=== PATIENT | male | born 1985 | race Caucasian/White ===

== ENCOUNTER 2024-03-25 13:00 | Outpatient (RCR) | payer OTHER, SELFPAY | END 2024-03-25 17:07 | disposition home or self-care (01) | LOC: HO.PT 13:00 | PROVIDERS: PCP Nurse Practitioner Family; Visit Provider Orthopaedic Surgery | DX: M75.41 Impingement syndrome of right shoulder (principal); M75.21 Bicipital tendinitis, right shoulder; M75.42 Impingement syndrome of left shoulder; M75.22 Bicipital tendinitis, left shoulder | CPT/HCPCS: 97110; 97112; 97140; 97162 ==

== ENCOUNTER 2024-10-13 08:35 | Outpatient (AMB) | payer OTHER, SELFPAY ==
--- NOTE | 2024-10-13 07:46 | MHC.OFFVIS ---
Intake Visit Reasons: referral Allergies vancomycin [VANCOMYCIN] Allergy (Unknown, Unverified 08/10/20 17:21) RED MAN SYNDROME HPI HPI referral: Details: Patient reports very loud snoring. He is requesting a sleep study, I will place an order in for a home sleep study. He denies any sleep apnea events, at least according to his . He denies any chest pain, shortness of breath, headaches, dizziness. Physical Exam Psych Appearance: well kempt Mental Status: mental status grossly normal Speech and movement: Normal speech and movement present Affect: normal affect Attitude: cooperative Thought process: Normal thought process present Thought content: Normal thought content present Insight: Good insight present (Psych) Judgement: Good judgement present (Psych) Telehealth Telehealth Telehealth Platform: [employer] Location of provider rendering services: practice address Location of patient: address on file Patient Identification confirmed using: Name, : Yes Telehealth method: video Patient verbally consented to treatment: Yes Patient verbally consented to billing insurance company: Yes Patient informed of any privacy concerns related to visit: Yes Minutes spent on Phone/Video with Pt.: 8 Assessment & Plan Assessment & Plan (1) Loud snoring: Code(s): R06.83 - Snoring Category: Medical Plan: Home sleep study ordered, requested the patient get his labs drawn fasting. We will see him in the future for physical Orders: Orders Complete Blood Count Auto Diff Today R06.83 - Snoring Lipid Panel Today R06.83 - Snoring RT home sleep study Today R06.83 - Snoring Comprehensive [place]. Panel Fast Today R06.83 - Snoring TSH reflex Free T4 Today R06.83 - Snoring UA CC w/rflx Micro + Cult Today R06.83 - Snoring Medications: Refilled meloxicam 15 mg PO DAILY PRN 90 tabs 1RF pain 90 days Coding Level of Care Code Tele Est Pt Level 3 (01335) Diagnoses Loud snoring R06.83
== END 2024-10-13 10:40 | disposition home or self-care (01) ==
LOC: HO.HMCC 08:35
PROVIDERS: PCP Nurse Practitioner Family; Visit Provider Nurse Practitioner Family
DX: R06.83 Snoring (principal)

== ENCOUNTER 2024-10-27 07:39 | Outpatient (REF) | payer OTHER, SELFPAY ==
[2024-10-27 11:17] LABS: MANUAL DIFF FLAG NO
[2024-10-27 11:17] LABS: Appearance Urine Turbid; Color Urine Yellow; Glucose Urine UA Negative (Negative); Leukocyte Esterase Urine Negative (Negative); Nitrite Urine Negative (Negative); Specific Gravity - Urine 1.025 (1.005-1.025); Urine Blood Negative (Negative); Urine Ketones Negative (Negative); Urine Protein Trace mg/dL (Neg-Trace)
[2024-10-27 11:25] LABS: Basophils Percent Auto 0.5 % (0-2); Eosinophils Absolute Auto 0.1 X10*3/uL (0.0-0.4); Eosinophils Percent Auto 0.8 % (0-4); Hematocrit 50.5 % (42.0-52.0); Hemoglobin 17.5 g/dl (14.0-18.0); Imm Gran Abs Auto 0.02 X10*3/uL (0.00-0.03); Imm Gran Pct Auto 0.3 % (0.0-0.4); Lymphocytes Absolute Auto 1.6 X10*3/uL (1.2-4.9); Lymphocytes Percent Auto 23.5 % (20-40); Mean Corpuscular HGB Conc 34.7 g/dl (31.0-36.0); Mean Corpuscular Hemoglobin 30.5 pg (27.0-33.0); Mean Platelet Volume 10.4 fL (9.4-12.4); Monocytes Absolute Auto 0.5 X10*3/uL (0.1-1.2); Neutrophils Absolute Auto 4.5 x10*3/uL (2.0-8.3); Neutrophils Percent Auto 67.9 % (45-73); Platelet Count 204 X10*3/uL (160-400); Red Blood Count 5.74 X10*6/uL (4.60-5.80); Red Cell Distribution Width 11.5 % (11.0-16.0); White Blood Count 6.6 X10*3/uL (4.8-10.8)
[2024-10-27 11:56] LABS: Alanine Aminotransferase 42 U/L (0-40); Albumin Level 4.6 g/dL (3.5-5.0); Alkaline Phosphatase 61 U/L (39-117); Anion Gap 11 (12-20); Aspartate Amino Transferase 28 U/L (5-37); Bilirubin Total 0.5 mg/dL (0.0-1.0); Blood Urea Nitrogen 23 mg/dL (9-16); Calcium 10.2 mg/dL (8.4-10.2); Carbon Dioxide 30 mmol/L (22-29); Chloride 104 mmol/L (96-108); Cholesterol 263 mg/dL (<200); Estimated Glomerular Filt Rate > 60; Glucose Fasting 96 mg/dL (60-99); HDL Cholesterol 34 mg/dL (>40); LDL Cholesterol Calculated 192 mg/dL (<100); Potassium 4.4 mmol/L (3.3-5.1); Sodium 141 mmol/L (135-145); Total Protein 7.5 g/dL (6.5-8.0); Triglycerides 186 mg/dL (<150)
[2024-10-27 11:58] LABS: TSH reflex Free T4 1.43 uIU/mL (0.32-4.0)
--- OUTSIDE RECORDS SUMMARY | 2024-11-02 16:18 | XMS_ITS ---
Author Name [facility] Organization Unknown History of Medication Use Medication Directions Dispensed Refills Start Date End Date Stat us FLUoxetine (PROzac) 20 MG capsule 10/08/2024 11/23/9999 active buPROPion (WELLBUTRIN XL) 150 MG 24 hr tablet 10/08/2024 11/23/9999 activ e OMEprazole (PriLOSEC) 20 MG capsule 10/08/2024 11/23/9999 active meloxicam (MOBIC) 15 MG tablet 10/08/2024 11/23/9999 active Problems Problem Status Onset Date Problem Type Date of Resoluti on Source Depression active 2024-10-01 ProblemAct [facility] Heartburn active 2024-10-01 ProblemAct [facility] HTN (hypertension) active 2024-10-01 ProblemAct [facility] Lesion of tongue active EncounterDiagnosisAct HHCCT
== END 2024-10-27 07:40 | disposition home or self-care (01) ==
LOC: HO.WFDLDS 07:39
PROVIDERS: Visit Provider Nurse Practitioner Family
DX: R06.83 Snoring (principal)
CPT/HCPCS: 36415; 80053; 80061; 81003; 84443; 85025

== ENCOUNTER → 2024-11-25 08:08 | Outpatient (REF) | payer OTHER, SELFPAY | LOC: HO.SL 08:08 | PROVIDERS: PCP Nurse Practitioner Family; Visit Provider Nurse Practitioner Family | DX: G47.33 Obstructive sleep apnea (adult) (pediatric) (principal); R06.83 Snoring | CPT/HCPCS: 95806 ==

== ENCOUNTER → 2024-11-25 08:26 | Outpatient (BNV) | payer OTHER, SELFPAY | PROVIDERS: PCP Nurse Practitioner Family; Visit Provider Internal Medicine | DX: G47.33 Obstructive sleep apnea (adult) (pediatric) (principal) | CPT/HCPCS: 95806 ==

== ENCOUNTER 2024-12-17 08:08 | Outpatient (REF) | payer OTHER, SELFPAY ==
--- NOTE | ~2024-12-17 | US_ITS ---
CLINICAL HISTORY: R74.8 - Abnormal levels of other serum enzymes US abdomen complete Comparison: None Findings: The visualized pancreas is normal. The aorta and inferior vena cava are normal caliber. The appearance of the liver suggests fatty infiltration without focal lesion. There is no intrahepatic bile duct dilatation. The common duct is 3.0 mm in diameter. The gallbladder is normal. There is no sonographic Hernandez sign. The main portal vein is antegrade. The right kidney is 12.7 cm in length. The left kidney is 13.4 cm in length. The spleen is normal. No ascites. IMPRESSION: 1. Hepatic steatosis. This document has been electronically signed by: Bhaskar Schilling MD on 12/18/2024 09:30:55
== END 2024-12-17 08:09 | disposition home or self-care (01) ==
LOC: HO.US 08:08
PROVIDERS: PCP Nurse Practitioner Family; Visit Provider Nurse Practitioner Family
DX: R74.8 Abnormal levels of other serum enzymes (principal)
CPT/HCPCS: 76700

== ENCOUNTER → 2024-12-17 08:08 | Outpatient (BNV) | payer OTHER, SELFPAY | PROVIDERS: PCP Nurse Practitioner Family; Visit Provider Specialist | DX: K76.0 Fatty (change of) liver, not elsewhere classified (principal) | CPT/HCPCS: 76700 ==

== ENCOUNTER 2025-01-12 15:42 | Outpatient (AMB) | payer OTHER, SELFPAY ==
--- OUTSIDE RECORDS SUMMARY | 2025-01-12 15:45 | XMS_ITS | Encounter Summary ---
Author Organization [facility] Address [address] [place] [address] Care Team Providers Care Coding Educator Name Role Phone Abdirizak Bryan MD Primary Care Provider [phone] Reason for Visit * Reason Comments Procedure Tongue bx Encounter Details Date Type Department Care Team (Latest Contact Info) Description 10/06/2024 1:00 PM EST Procedure visit [facility] [address] [address] Bob Jin MD [address] [place] [address] Tongue lesion (Primary Dx) Social History Tobacco Use Types Packs/Day Years Used Date Smoking Tobacco: Never Passive Smoke Exposure: Past Smokeless Tobacco: Never Alcohol Use Standard Drinks/Week Comments Yes 0 (1 standard drink = 0.6 oz pur e alcohol) monthly 2-3 Sex and Gender Information Value Date Recorded Sex Assigned at Not on file Gender Identity Not on file Sexual Orientation Not on file documented as of this encounter Last Filed Vital Signs Vital Sign Reading Time Taken Comments Blood Pressure - - Pulse - - Temperature - - Respiratory Rate - - Oxygen Saturation - - Inhaled Oxygen Concentration - - Weight 97.5 kg (215 lb) 10/06/2024 1:04 PM EST Height 177.8 cm (5' 10 ) 10/06/2024 1:04 PM EST Body Mass Index 30.85 10/06/2024 1:04 PM EST documented in this encounter Progress Notes * Bob Jin MD - 10/06/2024 1:00 PM EST Images from the original note were not included. [address] [facility] [id number] Loc: [phone] Encounter Date: 10/06/2024 Chief Complaint Patient presents with Procedure Tongue bx 1. Tongue lesion PROCEDURE: Excision of tongue lesion Pre-op Diagnosis: tongue lesion Post-op Diagnosis: same EBL: less than 5 ml Specimen: right lateral tongue Anesthesia: topical cetacaine and injected 1% lidocaine Description of procedure: The patient was identified in the procedure room. Surgical consent reviewed and all questions answered. He was placed in a semi-reclined position. Cetacaine spray was used as a topical anesthetic. 1%lidocaine with 1:100,000 epinephrine solution for a total of 1 mL was injected at the lesion site. Following adequate time for the anesthetic to take effect, sharp dissection was performed and the lesion was excised in its entirety. Hemostasis was achieved using pressure for 2 minutes followed by silver nitrate. The patient tolerated the procedure well and after a period observation was discharged home with care instructions and will follow up in one week PAST MEDICAL HISTORY Past Medical History: Diagnosis Date Depression 10/01/2024 Heartburn 10/01/2024 HTN (hypertension) 10/01/2024 Past Surgical History: Procedure Laterality Date ORTHOPEDIC SURGERY knee, thigh SHOULDER ARTHROCENTESIS History reviewed. No pertinent family history. Social History Tobacco Use Smoking status: Never Passive exposure: Past Smokeless tobacco: Never Substance Use Topics Alcohol use: Yes Comment: monthly 2-3 Drug use: Never MEDICATIONS Current Outpatient Medications: buPROPion (WELLBUTRIN XL) 150 MG 24 hr tablet, , Disp: , Rfl: FLUoxetine (PROzac) 20 MG capsule, , Disp: , Rfl: meloxicam (MOBIC) 15 MG tablet, , Disp: , Rfl: OMEprazole (PriLOSEC) 20 MG capsule, , Disp: , Rfl: ALLERGIES Allergies Allergen Reactions Aspirin Unknown/Patient and Family Unable to Define Vancomycin Unknown/Patient and Family Unable to Define VISIT ORDERS 1. Tongue lesion Bob Jin MD documented in this encounter Plan of Treatment Not on file documented as of this encounter Procedures Procedure Name Priority Date/Time Associated Diagnosis Comments SURGICAL PATHOLOGY Routine 10/06/2024 1: 57 PM EST Tongue lesion documented in this encounter Results * Tissue Pathology (10/06/2024 1:57 PM EST) Clinical Information [facility] Comment: ICD-10: K14.8 Growth, lesion Pathologist [facility] Comment: Trudy Mayen M.D., (electronic signature) [facility] [phone] Source [facility] Comment:Right lateral tongue , biopsy: Gross Desription [facility] Comment: The container is labeled with patient's name and source R lateral tongue . ??Specimen is received in 10% neutral buffered formalin and consists of a pale messina-galindo piece of soft tissue measuring 0.6 x 0.3 x 0.2 cm. ??The surgical resection is inked black. ??The specimen is left intact and submitted entirely in cassette A1. ??Gross exam(s) performed at: [employer] ??[address] [place] [phone] ??Principal Architect: ANTONIO HAWKINS MD Diagnosis [facility] Comment: - Hyperplastic squamous mucosa with parakeratosis and mild cytologic atypia; negative for high-grade dysplasia/malignancy. Tissue 10/06/2024 1:57 PM EST 10/07/2024 5:03 AM EST Bob Jin MD PATHOLOGY/CYTOLOGY O RDERABLES Performing Organization Address City/State/[facility] Co de Phone Number [facility] [place] [address] [place] [address] documented in this encounter Visit Diagnoses Diagnosis Tongue lesion- Primary Unspecified condition of the tongue documented in this encounter Care Teams Coding Educator Relationship Specialty Start Date End Date Abdirizak Bryan MD [address] [place] [address] PCP - General Family Medicine 09/20/24 documented as of this encounter
--- OUTSIDE RECORDS SUMMARY | 2025-01-12 15:45 | XMS_ITS | Clinical Summary ---
Author Organization [facility] Address [address] [place] [address] Care Team Providers Care Hotel Clerk Name Role Phone Abdirizak Bryan MD Primary Care Provider [phone] Allergies Active Allergy Reactions Criticality Noted Date Comments Aspirin Unknown/Patient and Family Unable to Define Medium 10/01/2024 Vancomycin Unknown/Patient and Family Unable to Define Medium 10/01/2024 Medications Medication Sig Dispensed Refills Start Date End Date Status OMEprazole (PriLOSEC) 20 MG capsule 09/20/2024 Active meloxicam (MOBIC) 15 MG tablet 09/13/2024 Active FLUoxetine (PROzac) 20 MG capsule 09/27/2024 Active buPROPion (WELLBUTRIN XL) 150 MG 24 hr tablet 08/09/2024 Active Active Problems Problem Noted Date Diagnosed Date Depression 10/01/2024 Heartburn 10/01/2024 HTN (hypertension) 10/01/2024 Encounters Date Type Department Care Team Description 10/20/2024 8:00 AM EST Office Visit [facility] [address], [place] [address] Bob Jin MD Lesion of tongue (Primary Dx) from Last 3 Months Social History Tobacco Use Types Packs/Day Years Used Date Smoking Tobacco: Never Passive Smoke Exposure: Past Smokeless Tobacco: Never Tobacco Cessation:Counseling Given: Not Answered Alcohol Use Standard Drinks/Week Comments Yes 0 (1 standard drink = 0.6 oz pur e alcohol) monthly 2-3 Sex and Gender Information Value Date Recorded Sex Assigned at Not on file Gender Identity Not on file Sexual Orientation Not on file Last Filed Vital Signs Vital Sign Reading Time Taken Comments Blood Pressure - - Pulse - - Temperature - - Respiratory Rate - - Oxygen Saturation - - Inhaled Oxygen Concentration - - Weight 97.5 kg (215 lb) 10/20/2024 7:57 AM EST Height 177.8 cm (5' 10 ) 10/20/2024 7:57 AM EST Body Mass Index 30.85 10/20/2024 7:57 AM EST Plan of Treatment Health Maintenance Due Date Last Done Comments Hepatitis C Virus Screening 1983 HIV Screening 1996 DTaP/Tdap/Td Vaccines (1 - Tdap) 2002 Hepatitis B Vaccines (1 of 3 - 19+ 3-dose series) 2002 Influenza Vaccine 06/24/2024 COVID-19 Vaccine (2023-2 5 season) 2024 HPV Vaccines Aged Out No longer eligi ble based on patient's age to complete this topic Pneumococcal Vaccine: Pediat kristy (0-5 Years) and At-Risk Patients (6 to 49 Years) Aged Out No longer eligible b ased on patient's age to complete this topic Care Teams Hotel Clerk Relationship Specialty Start Date End Date Abdirizak Bryan MD [address] [place] [address] PCP - General Family Medicine 09/20/24
--- NOTE | 2025-01-12 15:54 | A.OFFPC_ITS ---
Vital Signs 01/12/25 15:57 Height 5 ft 10 in Weight 215 lb BMI 30.8 BP 130/70 Blood Pressure Location Lt brachial Position Sitting Pulse 73 Pulse Source Pulse Oximeter Temp 97.9 F Temp Source Oral Pulse Oximetry (%) 98 Intake Visit Reasons: Annual PE Intake Note: pt is here for annual exam Sanitation Worker Required: No Accompanied by: Self / Same As Patient Allergies vancomycin [VANCOMYCIN] Allergy (Unknown, Verified 01/12/25 16:41) RED MAN SYNDROME Medication List - Last Reconciled 01/12/25 by SHELLY CerdaP- bupropion HCl XL 150 mg PO QAM 90 days CPAP (CPAP Machine/Device) CPAP and supplies-Auto pap mode, pressure 6-20cm fluoxetine 20 mg PO DAILY meloxicam 15 mg PO DAILY PRN 90 days omeprazole 20 mg PO DAILY 90 days Tobacco use date assessed: 01/12/25 Dental Screening Dental Screen Date: 01/12/25 Did you have a dental visit in the last 12 months?: Yes Did you have a dental problem in the last 6 months where you did not have access to dental care?: No Was dental information given to patient?: Patient has dentist HPI Annual PE HPI Details History of Present Illness The patient is a 39-year-old male presenting for a physical examination. He has a history of obstructive sleep apnea for which he uses a CPAP machine. His sleep apnea has been previously undiagnosed for a significant period. He denies experiencing any shortness of breath, chest pain, abdominal pain, blood in stool, constipation, or diarrhea. He reports no issues with anxiety or depression and denies any suicidal or homicidal ideation. Due to his sleep apnea history ,i will order a echocardiogram. Additionally, he has a hearing impairment necessitating a hearing test. Health Maintenance - Echocardiogram recommended due to hist ory of obstructive sleep apnea - Hearing test scheduled due to reported hearing impairment Social History Review of Systems - Respiratory: Denies shortness of breat h. - Cardiovascular: Denies chest pain. - Gastrointestinal: Denies abdominal donovan n, blood in stool, constipation, or diarrhea. - Psychological: Denies anxiety, depress ion, suicidal or homicidal ideation. - denies any urinary symptoms Physical Exam General: Cooperative, healthy appearing, comfortable, no acute distress and well developed Orientation: Patient oriented x3 Limitations: No limitations Head: Normal to inspection Ears: Hearing impaired, will be sent for a hearing test Nose: Normal external nose present Face and sinus: Normal facial exam Eyes: Appearance normal, both eyes and all related structures Neck: Normal visual inspection and Yes full ROM Respiratory: Normal respiratory effort and able to speak in complete sentences. Clear to auscultation bilaterally Cardiovascular: Regular rate and rhythm. Normal S1 and S2 GI: Normal to inspection. Soft to palpation and nontender Skin: No rashes or lesions noted Neuro: Patient oriented x3 Extremities: Normal to inspection Results Plan - An echocardiogram will be performed to assess any potential cardiac complications from undiagnosed obstructive sleep apnea. - The patient will be referred for a hea ring test due to hearing impairment. Discussion Notes I discussed the management of his obstructive sleep apnea and the importance of continuing CPAP therapy. We also talked about the recommended echocardiogram to check for any cardiac implications due to the long history of untreated sleep apnea. I explained the need for a hearing test to further evaluate his hearing impairment. The patient was agreeable to the plan and understands the importance of these assessments in the context of his health maintenance. Patient Instructions - Continue using your CPAP machine every night as prescribed. - Follow up for the scheduled echocardio gram and hearing test. - Report any new or worsening symptoms, such as breathing difficulties or any new cardiovascular symptoms. [facility] Medical History Fatty liver Depression Surgical History S/P shoulder surgery S/P left knee surgery Family History Mother Colon cancer Father No problems noted. 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 1. Little interest or pleasure in doing things: not at all 2. Feeling down, depressed, or hopeless: several days 3. Trouble falling or staying asleep, or sleeping too much: not at all 4. Feeling tired or having little energy: not at all 5. Poor appetite or overeating: not at all 6. Feeling bad about yourself - or that you are a failure or have let yourself or your family down: not at all 7. Trouble concentrating on things, such as reading the newspaper or watching television: not at all 8. Moving or speaking so slowly that other people could have noticed. Or the opposite - being so fidgety or restless that you have been moving around a lot more than usual: not at all 9. Thoughts that you would be better off or of hurting yourself in some way: not at all Total score: 1 Depression Screening Interpretation: Negative Depression Screening Done: Yes [id number] - PHQ-9 Billing: Yes Source: Developed by Drs. Travis Loco, Larissa Hussein, Jaron Martinez and colleagues, with an educational enio from [employer]. Thrive Questionnaire I am a: Patient What is your living situation today?: I have a steady place to live Within the past 12 months, did the food you bought not last and you didn't have the money to get more?: Never true Within the past 12 months, did you worry whether your food would run out before you got money to buy more?: Never true Do you have trouble paying for medicines?: No Do you have trouble getting transportation to medical appointments?: No Do you have trouble paying your heating and electricity bill?: No Do you have trouble taking care of your child, family member or friend?: No Do you have trouble with day-to-day activities such as bathing, preparing meals, shopping, managing finances, etc.?: No Are you currently unemployed and looking for a job?: No Are you interested in more education?: No Please select the resources that you would like help with: None Currently or been in a relationship where the following occur: No concerns reported THRIVE Score: 0 AUDIT C Alcohol Use Questionnaire (AUDIT-C) 1. How often do you have a drink containing alcohol?: 2-4 times a month 2. How many drinks containing alcohol do you have on a typical day when you are drinking?: 1 or 2 3. How often do you have six or more drinks on one occasion?: Never Total Score: 2 NICKOLAS-7 AMB Questionnaire NICKOLAS-7 Feeling nervous, anxious, or on edge: 0 = Not at all Not being able to stop or control worryin = Not at all Worrying too much about different things: 0 = Not at all Trouble relaxin = Not at all Being so restless that it is hard to sit still: 0 = Not at all Becoming easily annoyed or irritable: 0 = Not at all Feeling afraid as if something awful might happen: 0 = Not at all Total NICKOLAS-7 score (0-4 normal; 5-9 mild; 10-14 moderate; 15-21 severe): 0 Source: Developed by Drs. Travis Loco, Larissa Hussein, Jaron Martinez and colleagues, with an educational enio from [employer]. NICKOLAS-7 Assessment Billing NICKOLAS-7 Assessment Tool: NICKOLAS-7 Assessment 55778 Physical exam (Primary Care) Vital Signs: Last Vital Signs Temp 97.9 F 01/12/25 15:57 Pulse 73 01/12/25 15:57 BP 130/70 01/12/25 15:57 Pulse Ox 98 01/12/25 15:57 BMI result Body Mass Index 30.8 Tobacco/Smoking Status: Tobacco use Status Tobacco use date assessed 01/12/25 01/12/25 16:05 Patient Tobacco Use Status Never used Tobacco 01/12/25 16:05 e-Cigarette/Vaping Use Never Used 01/12/25 16:05 PHQ-9: PHQ-9 Score PHQ-9: Total score 1 01/12/25 15:55 Depression Screening Interpretation: Negative Currently or been in a relationship where the following occur: No concerns reported Coding Level of Care Code Est Pt Prev Care 40-64y(84034) Diagnoses Physical exam Z00.00 Sleep apnea G47.30 Loss of hearing H91.90 Additional Codes PHQ-9 - 03762 - PHQ-9 Billing: Yes ([id number]) NICKOLAS-7 Assessment Billing - NICKOLAS-7 Assessment Tool: NICKOLAS-7 Assessment 49698 ([id number]) Assessment & Plan Assessment & Plan (1) Physical exam: Code(s): Z00.00 - Encounter for general adult medical examination without abnormal findings Category: Medical (2) Sleep apnea: Code(s): G47.30 - Sleep apnea, unspecified Category: Medical (3) Loss of hearing: Code(s): H91.90 - Unspecified hearing loss, unspecified ear Category: Medical Plan . Orders: Orders Comprehensive [place]. Panel Fast Today Z00.00 - Encounter for general adult medical examination without abnormal findings Lipid Panel Today Z00.00 - Encounter for general adult medical examination without abnormal findings Complete Blood Count Auto Diff Today Z00.00 - Encounter for general adult medical examination without abnormal findings TSH reflex Free T4 Today Z00.00 - Encounter for general adult medical examination without abnormal findings UA CC w/rflx Micro + Cult Today Z00.00 - Encounter for general adult medical examination without abnormal findings CA echo transthoracic complete Today G47.30 - Sleep apnea, unspecified Referrals Speech and Hearing Referral H91.90 - Unspecified hearing loss, unspecified ear
[2025-01-12 15:57] VITALS: BP 130/70; PULSE 73; TEMP 36.6; O2SAT 98; BMI 30.8
== END 2025-01-12 17:02 | disposition home or self-care (01) ==
PROVIDERS: PCP Nurse Practitioner Family; Visit Provider Nurse Practitioner Family
DX: Z00.00 Encounter for general adult medical examination without abnormal findings (principal); G47.30 Sleep apnea, unspecified; H91.90 Unspecified hearing loss, unspecified ear

== ENCOUNTER → 2025-01-12 15:42 | Outpatient (BNVA) | payer OTHER, SELFPAY | PROVIDERS: PCP Nurse Practitioner Family; Visit Provider Nurse Practitioner Family | DX: Z00.00 Encounter for general adult medical examination without abnormal findings (principal); G47.33 Obstructive sleep apnea (adult) (pediatric); H91.90 Unspecified hearing loss, unspecified ear | CPT/HCPCS: 96127 ==

== ENCOUNTER 2025-01-19 07:48 | Outpatient (REF) | payer OTHER, SELFPAY ==
--- OUTSIDE RECORDS SUMMARY | 2025-01-19 07:54 | XMS_ITS | Patient Health Record ---
Author Organization [facility] Address [address] [place] [address] Care Team Providers Care Telegraph Lineman Name Role Phone MANAS MUNIZ Primary Care Provider Jose Elias Barnes Unavailable [phone] ALLERGIES Allergen (clinical drug ingredient) Drug/Non Drug Allergy documented on EMR Reaction Allergy Type Onset Date Status vancomycin Vancomycin HCl Unknown Drug Allergy A ctive REASON FOR REFERRAL No Information MEDICATIONS Medication SIG (Take, Route, Fr equency, Duration) Notes Start Date End Date Status Omeprazole 20 MG TAKE 1 CAPSULE BY MO UTH EVERY DAY for 30 Active FLUoxetine HCl 10 MG TAKE 1 CAPSULE BY M OUTH EVERY DAY IN THE MORNING Oral for 90 A ctive SOCIAL HISTORY Tobacco Use: Social History Observation Description Date Details (start date - stop date) Never Smoker NA - NA Sex Assigned At : Social History Observation Description Sex Assigned At Unknown Tobacco Use/Smoking Question Answer Notes Patient is a nonsmoker Alcohol Screen Question Answer Notes Did you have a drink contain ing alcohol in the past year? Yes How often did you have a dri nk containing alcohol in the past year? Monthly or less (1 point) How many drinks did you have on a typical day when you were drinking in the past year? 1 or 2 drinks (0 point) How often did you have 6 or more drinks on one occasion in the past year? Never (0 point) Points 1 Interpretation Negative PROBLEMS Problem Type ICD Code Onset Dates Problem Status W/U Status Risk SNOMED Code Notes Problem Encounter for screening for malignant neoplasm of colon (Z12.11) Active confirmed 676391060 Problem Preprocedural examination (Z01.818) Active confirmed [id number] Problem Family history of colon cancer (Z80.0) Active confirmed 770031963 Problem Dysphagia, unspecified type (R13.10) Active confirmed 52307610 PLAN OF TREATMENT Future Test Test Name Order Date COLONOSCOPY 04/14/2018 Next Appt Details Provider Name:Jose Elias Lucas , 05/06/2025 03:00:00 PM, [address] [place] [address], [address], [place], [address], Insurance Providers Payer Name Payer Address Payer Phone Subscriber Number Group Number Insured Name Patient Relationship to Insured Coverage Start Date Coverage End Date [employer] [place] [address] [address] [place] [address] [id number] JOSE ELIAS MANDEL Self - patient is the insured MEDICAL (GENERAL) HISTORY Medical History History ICD Code Asthma--inhaler prn Denies [place],DM,CV,renal disease Depression Surgical History Surgery Date(Month/Year) RIGHT SHOULDER 1997 LEFT KNEE 1996 LEFT THIGH - FOREIGN BODY REMOVED 2011 Vasectomy
--- OUTSIDE RECORDS SUMMARY | 2025-01-19 07:54 | XMS_ITS | Clinical Summary ---
Author Organization [facility] Address [address] [place] [address] Care Team Providers Care Rn Women Services Name Role Phone Abdirizak Bryan MD Primary Care Provider Allergies Active Allergy Reactions Criticality Noted Date [...] Description 10/20/2024 8:00 AM EST Office Visit [facility] [address], [place] [address] Bob Jin MD Lesion of [...] age to complete this topic Care Teams Rn Women Services Relationship Specialty Start Date End Date Abdirizak Bryan MD [address] [place] [address] PCP - General Family Medicine 09/20/24
== END 2025-01-19 07:49 | disposition home or self-care (01) ==
LOC: HO.SH 07:48
PROVIDERS: Visit Provider Nurse Practitioner Family
DX: Z01.118 Encounter for examination of ears and hearing with other abnormal findings (principal); H90.3 Sensorineural hearing loss, bilateral
CPT/HCPCS: 92557

== ENCOUNTER → 2025-01-26 08:01 | Outpatient (REF) | payer OTHER, SELFPAY ==
--- NOTE | 2025-01-26 08:04 | CA_ITS ---
Transthoracic Echocardiogram Patient (Last, First, Middle): Travis Mendez M Gender: Male Date of : 1985 Age: 39 Procedure Date: 01/26/2025 Procedure Type: Transthoracic Echocardiogram Location: OP Height: 177.8 cm Weight: 97.52 kg BSA: 2.15 m2 Heart Rate: bpm BP: 128 / 80 mmHg Elementary Librarian: TO Referring MD: Abdirizak Bryan [facility] Raw Silk Grader: Brando Herndon MD Symptoms: G47.30 - Sleep apnea, unspecified Study Quality: Adequate w contrast ECG Rhythm: Sinus Conclusions: - Essentially normal study Findings Procedure Information Contrast agent, definity, is being given per protocol without apparent complications. Left Ventricle Normal left ventricular size, thickness, and systolic function. The visually estimated ejection fraction is between 55-60%. Spectral Doppler is indicative of a normal filling pattern. Right Ventricle Normal right ventricular cavity size and systolic function. Atria Both atria are normal in size. There is no evidence of interatrial shunt. Aortic Valve Normal aortic valve structure and function. There is no aortic valve stenosis. There is no aortic valve regurgitation. Mitral Valve Normal mitral valve structure and function. There is trace mitral valve regurgitation. There is no mitral valve stenosis. Pulmonic Valve The pulmonic valve is likely normal. Tricuspid Valve Normal tricuspid valve structure. Tricuspid regurgitation envelope is inadequate for calculation of right ventricular systolic pressure. Normal right atrial pressure. Great Vessels All visible segments of the aorta are normal in size. Venous The inferior vena cava is normal in size and collapses greater than 50% with inspiration. Pericardium/Pleural There is no evidence of pericardial effusion. Prior Study Comparison No prior study available for comparison. Measurements 2D Linear Measurements IVSd: 1.04 0.6-0.9/0.6-1.0 cm LVIDd: 4.82 3.9-5.3/4.2-5.9 cm LVIDd Index: 2.24 2.4-3.2/2.2-3.1 cm/m2 LVIDs: 3.41 2.0-3.6 cm LVPWd: 0.72 0.7-1.1 cm LA Diam: 3.20 2.7-3.8/3.0-4.0 cm LAIDs Index: 1.49 1.5-2.3 cm/m2 LV Mass: 179.69 67-162/88-224 g LV Mass Index: 83.58 43-95/49-115 g/m2 LVOT Diam: 2.20 3.0+(-)1.3 cm Mitral Valve MV Pk E: 0.71 MV PK A: 0.44 MV Decel Time: 192.00 E/A: 1.60 E'Lateral: 12.00 E'Medial: 9.14 E/E' Med: 7.70 E/E' Lat: 5.90 PHT: 56.00 MVA PHT: 3.93 Decel Pecos: 3.67 Aortic Valve AoV Pk Edwin: 1.05 AoV Mn Edwin: 0.78 AoV VTI: 0.23 AoV Pk Grad: 4.00 Aov Mn Grad: 3.00 SUMMER Cont.VTI: 3.17 LVOT LVOT Pk Edwin: 1.04 LVOT Mn Edwin: 0.68 LVOT VTI: 0.19 LVOT Pk Grad: 4.00 LVOT Mn Grad: 2.00 LVOT Diam: 2.20 LVOT Area: 3.80 Diastolic Function MV Pk E: 0.71 MV Pk A: 0.44 E/A: 1.60 E'Medial: 9.14 E/E' Med: 7.70 E' Laterial: 12.00 E/E' Lat: 5.90 Right Ventricle TAPSE (mm): 21.70 TVS' Edwin: 12.90 Tricuspid Valve RA Press: 3.00 Great Vessels Aorta Sinus of Valsalva: 3.33 2.0-3.5 cm Ao Asc: 2.70 2.1-3.4 cm Updated in Other Vendor System with Status of Final Brando Herndon MD electronically signed on 01/27/2025 3:59:35 PM with status of Final
--- OUTSIDE RECORDS SUMMARY | 2025-01-26 08:10 | XMS_ITS | Clinical Summary ---
Author Organization [facility] Address [address] [place] [address] Care Team Providers Care Marble Supervisor Name Role Phone Abdirizak Bryan MD Primary [...] Depression 10/01/2024 Heartburn 10/01/2024 HTN (hypertension) 10/01/2024 Social History Tobacco Use Types Packs/Day Years [...] series) 2002 Influenza Vaccine 06/24/2024 COVID-19 Vaccine (1 - 2023-2 5 season) 2024 HPV Vaccines Aged Out No longer eligi ble based on patient's age to complete this topic Pneumococcal Vaccine: Pediat kristy (0-5 Years) and At-Risk Patients (6 to 49 Years) Aged Out No longer eligible b ased on patient's age to complete this topic Care Teams Marble Supervisor Relationship Specialty Start Date End Date Abdirizak Bryan MD [address] [facility] [place] [address] PCP - General Family Medicine 09/20/24
--- OUTSIDE RECORDS SUMMARY | 2025-01-26 08:11 | XMS_ITS | Patient Health Record ---
Author Organization [facility] Address [address] [place] [address] Care Team Providers Care Forensic Investigator Name Role Phone MANAS MUNIZ Primary Care Provider Jose Elias Barnes Unavailable [phone] Allergies Allergen (clinical drug ingredient) Drug/Non Drug Allergy documented on EMR Reaction Allergy Type Onset Date Status vancomycin Vancomycin HCl Unknown Drug Allergy A ctive Reason For Referral No Information Medications Medication SIG (Take, Route, Fr equency, Duration) Notes Start Date End Date Status Omeprazole 20 MG TAKE 1 CAPSULE BY MO UTH EVERY DAY for 30 Active FLUoxetine HCl 10 MG TAKE 1 CAPSULE BY M OUTH EVERY DAY IN THE MORNING Oral for 90 A ctive Social History Tobacco Use: Social History Observation Description Date Details (start date - stop date) Never Smoker NA - NA Tobacco Use/Smoking Question Answer Notes Patient is [...] Never (0 point) Points 1 Interpretation Negative Section Notes: Nonsmoker, occ. beer Problems Problem Type SNOMED Code ICD Code Onset Dates Problem Status W/U Status Risk Notes Problem 336242147 Encounter for screening for malignant neoplasm of colon (Z12.11) Active confirmed Problem 429500833541521 Preprocedural examination (Z01.818) Active confirmed Problem 253180164 Family history o f colon cancer (Z80.0) Active confirmed Problem 79168366 Dysphagia, unspecified type (R13.10) Active confirmed Plan Of Treatment Future Test Test Name Order Date COLONOSCOPY 04/14/2018 Next Appt Details Provider Name:Jose Elias Lucas , 05/06/2025 03:00:00 PM, [address] [place] [address], [address], [place], [address], Insurance Providers Payer Name Payer Address Payer Phone Subscriber Number Group Number Insured Name Patient Relationship to Insured Coverage Start Date Coverage End Date [employer] [place] [address] [address] [place] [address] [id number] JOSE ELIAS MANDEL Self - patient is the insured Medical (General) History Medical History History ICD Code Asthma--inhaler prn Denies AL,DM,CV,renal disease Depression Surgical History Surgery Date(Month/Year) RIGHT SHOULDER 1997 LEFT KNEE 1996 LEFT THIGH - FOREIGN BODY REMOVED 2011 Vasectomy
== END ==
LOC: HO.CARD 08:01
PROVIDERS: PCP Nurse Practitioner Family; Visit Provider Nurse Practitioner Family
DX: G47.30 Sleep apnea, unspecified (principal)
CPT/HCPCS: 93306; Q9957

== ENCOUNTER → 2025-01-26 08:04 | Outpatient (BNV) | payer OTHER, SELFPAY | PROVIDERS: PCP Nurse Practitioner Family; Visit Provider Internal Medicine Cardiovascular Disease | DX: G47.30 Sleep apnea, unspecified (principal) | CPT/HCPCS: 93306 ==

== ENCOUNTER 2025-02-17 07:13 | Outpatient (AMB) | payer OTHER, SELFPAY ==
--- NOTE | 2025-02-17 07:44 | MHC.PC.OV ---
Intake Visit Reasons: 60 day cpap compliance Allergies vancomycin [VANCOMYCIN] Allergy (Unknown, Verified 02/17/25 07:44) RED MAN SYNDROME Medication List - Last Reconciled 02/17/25 by ROSAURA Cerda bupropion HCl XL 150 mg PO QAM 90 days CPAP (CPAP Machine/Device) CPAP and supplies-Auto pap mode, pressure 6-20cm fluoxetine 20 mg PO DAILY meloxicam 15 mg PO DAILY PRN 90 days omeprazole 20 mg PO DAILY 90 days Tobacco use date assessed: 01/12/25 Dental Screening Dental Screen Date: 01/12/25 HPI 60 day cpap compliance HPI Details History of Present Illness The patient is a 39-year-old male presenting with a follow-up for compliance with CPAP therapy. He has consistently used the device for about one month and has experienced significant symptom improvement. He reports diminished fatigue and a complete cessation of snoring. His energy levels have improved markedly, and he is very satisfied with the benefits he has experienced. There have been no adverse events reported during this time. Review of Systems denies any sob, cp, fevers, chills PE A+Ox3 no acute distrss noted Plan The patient will continue with current CPAP therapy due to the observed benefits, including reduced fatigue and cessation of snoring. Continued monitoring and adherence to therapy were recommended, as no therapy modifications are indicated at this time. Discussion Notes During our discussion, we reviewed the patient's progress with CPAP therapy. The patient reported satisfaction with the treatment outcomes, experiencing less fatigue and no snoring. We discussed the importance of continuing the therapy to maintain these benefits. I emphasized monitoring for any potential issues and ensuring adherence to the prescribed treatment plan. Follow-up was advised if any concerns or changes in symptoms arise. Patient Instructions - Continue using CPAP device every night as directed. - Monitor for any changes in symptoms or any issues with device. - Report any new symptoms or issues with CPAP at the next follow-up. [facility] Medical History Fatty liver Depression Surgical History S/P shoulder surgery S/P left knee surgery Family History Mother Colon cancer Father No problems noted. 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 Cognitive needs: No Hearing needs: No Vision needs: No Physical exam (Primary Care) Tobacco/Smoking Status: Tobacco use Status Tobacco use date assessed 01/12/25 01/12/25 16:05 Patient Tobacco Use Status Never used Tobacco 01/12/25 16:05 e-Cigarette/Vaping Use Never Used 01/12/25 16:05 Telehealth Telehealth Telehealth Platform: ECO Location of provider rendering services: practice address Location of patient: address on file Patient Identification confirmed using: Name, : Yes Telehealth method: video Patient verbally consented to treatment: Yes Patient verbally consented to billing insurance company: Yes Patient informed of any privacy concerns related to visit: Yes Minutes spent on Phone/Video with Pt.: 12 Coding Level of Care Code Tele Est Pt Level 3 (78081) Diagnoses Sleep apnea G47.30 Loud snoring R06.83 Assessment & Plan Assessment & Plan (1) Sleep apnea: Code(s): G47.30 - Sleep apnea, unspecified Category: Medical (2) Loud snoring: Code(s): R06.83 - Snoring Category: Medical Plan .
== END 2025-02-17 08:14 | disposition home or self-care (01) ==
LOC: HO.HMCC 07:13
PROVIDERS: PCP Nurse Practitioner Family; Visit Provider Nurse Practitioner Family
DX: G47.30 Sleep apnea, unspecified (principal); R06.83 Snoring

== ENCOUNTER 2025-07-01 11:30 | Day surgery (SDC) | payer OTHER, SELFPAY ==
--- OUTSIDE RECORDS SUMMARY | 2025-06-02 15:05 | XMS_ITS | Clinical Summary ---
Author Organization [facility] Address [address] [place] [address] Care Team Providers Care Puddler Helper Name Role Phone Abdirizak Bryan MD Primary Care Provider [phone] Allergies Active Allergy Reactions Criticality Noted Date Comments Aspirin Unknown/Patient and Family Unable to Define Medium 10/01/2024 Vancomycin Unknown/Patient and Family Unable to Define Medium 10/01/2024 Medications OMEprazole (PriLOSEC) 20 MG capsule 09/20/2024 Active [...] Recorded Sex Assigned at Not on file Legal Sex Male 6:21 PM EST Gender Identity Not on file Sexual Orientation [...] of 3 - 19+ 3-dose series) 2002 COVID-19 Vaccine (1 - 2023-2 5 season) 2024 Influenza Vaccine 06/24/2025 HPV Vaccines Aged Out No longer eligi ble based on patient's age to complete this topic Pneumococcal Vaccine: Pediat kristy (0-5 Years) and At-Risk Patients (6 to 49 Years) Aged Out No longer eligible b ased on patient's age to complete this topic Insurance [facility] Care Teams Puddler Helper Relationship Specialty Start Date End Date Abdirizak Bryan MD [address] [place] [address] PCP - General Family Medicine 09/20/24
--- OUTSIDE RECORDS SUMMARY | 2025-06-02 15:06 | XMS_ITS ---
Author Name [facility] Organization Unknown History of Medication Use Medication Directions Dispensed Refills Start Date End Date Stat us FLUoxetine (PROzac) 20 MG capsule 09/27/2024 active Allergies Allergen Reaction Severity Comment Documented Date Source Statu s VANCOMYCIN UNKNOWN/PATIENT AND FAMILY UNABLE TO DEFINE 10/01/2024 [facility] active ASPIRIN UNKNOWN/PATIENT AND FAMILY UNABLE TO DEFINE [facility] Problems Problem Status Onset Date Problem Type Date of Resoluti on Source Lesion of tongue active EncounterDiagnosisAct [facility] HTN (hypertension) active 2024-10-01 ProblemAct [facility] Heartburn active 2024-10-01 ProblemAct [facility] Depression active 2024-10-01 ProblemAct [facility] Encounters Encounter Type Encounter Reason Primary Diagnosis Location Date Ambulatory Follow-up Follow-up [facility] 10/20/2024 Ambulatory Procedure Procedure [facility] 10/06/2024 Care Team Organization Name Specialty Phone Email Start Date End Da te [facility] 10/08/2024 02/09/2025 [facility] 09/20/2024 [facility] Primary Care 09/20/2024
[2025-06-29 14:40] VITALS: BMI 31.0
--- NOTE | 2025-06-30 08:55 | P.CONAN_ITS ---
Documented by User: Ellie Dhaliwal NP 06/30/25 08:56 HPI - Anesthesia Eval Consult details Narrative: 39yo M for Colonoscopy PMFSH Active Problems Active Problems: All Active Problems GERD (gastroesophageal reflux disease) (Acute) Loss of hearing (Acute) Sleep apnea (Acute) Physical exam (Acute) Dyslipidemia (Acute) Elevated liver enzymes (Acute) Loud snoring (Acute) Past Medical History Medical History Hx of retained foreign body fully removed Hearing loss Dyslipidemia GERD (gastroesophageal reflux disease) Sleep apnea Fatty liver Depression Family History Family History Mother Colon cancer Father No problems noted. 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 Cognitive needs: No Hearing needs: No Vision needs: No Meds Allergies Allergy/AdvReac Type Severity Reaction Status Date / Time vancomycin (VANCOMYCIN) Allergy Unknown RED MAN Verified 02/17/25 07:44 SYNDROME Home Medications ?Medication ?Instructions ?Recorded ?Confirmed ?Last Taken ?Type fluoxetine 20 mg capsule 20 mg PO DAILY 06/29/25 08/0 05/18 Unknown History Exam Height,Weight and Vital Signs: Height 5 ft 9 in Weight 95.254 kg Assessment and Plan Assessment Anesthesia Assessment: Chart Reviewed Documented by User: Issa Maguire MD 07/01/25 14:07 [facility] Past Medical History Medical History Hx of retained foreign body fully removed Hearing loss Dyslipidemia GERD (gastroesophageal reflux disease) Sleep apnea Fatty liver Depression Cognitive capacity: good Functional capacity: independent ambulation Family History Family History Mother Colon cancer Father No problems noted. 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, [employer] Cognitive needs: No Hearing needs: No Vision needs: No Meds Allergies Allergy/AdvReac Type Severity Reaction Status Date / Time vancomycin (VANCOMYCIN) Allergy Unknown RED MAN Verified 02/17/25 07:44 SYNDROME Home Medications ?Medication ?Instructions ?Recorded ?Confirmed ?Last Taken ?Type fluoxetine 20 mg capsule 20 mg PO DAILY 06/29/25 080 05/18 Unknown History Exam Exam Date and Time: 07/01/2025 Pertinent Lab Results Pertinent Lab Results: rrr Narrative Narrative: normal 39 year old male with strong family history of Colon cancer Airway Mallampati Class: II TM Dist: >3cm Neck ROM: Full Loose/Missing/Broken Teeth: No Heart: rrr Lungs: cta Other: normal Assessment and Plan Final Anesthetic Review Family History of Problems with Anesthesia: No History of Problems with Anesthesia: No NPO: Yes ASA Class: II Final Preanesthetic Review: No Changes in Pt Med Stat, Meds/Allgs Chart Reviewed, Consent Obtained/Reviewed and Anes Risks/Benef Reviewed Patient Risk: Low Procedure Risk: Low Anesthetic Plan Anesthetic Plan: MAC: Disposition: Standard PACU
[2025-07-01 11:48] VITALS: BMI 30.7
[2025-07-01 11:57] VITALS: BP 134/92; PULSE 96; RESP 16; TEMP 36.8; O2SAT 97
[2025-07-01] MEDS: Lactated Ringers 1,000 ML 100 ML IVCONT (12:17)
[2025-07-01 14:34] VITALS: BP 98/60; PULSE 79; RESP 10; TEMP 36.1
--- NOTE | 2025-07-01 14:38 | PM.OP ---
Brief Operative Note Date of Service: 07/01/25 Pre-op diagnosis: Screening Post-op diagnosis: other (Occasional sigmoid diverticulosis) Procedure: Colonoscopy to the cecum and Ti Surgeon: Travis Lucas MD Anesthesia: MAC Was an Railroad Dining Car Steward/Stewardess used for this Procedure?: No Estimated blood loss (mL): 0 Pathology: none sent Condition: stable Disposition: PACU
[2025-07-01 14:50] VITALS: BP 126/86; PULSE 88; RESP 16; TEMP 36.9; O2SAT 99
--- NOTE | 2025-08-26 14:36 | OP_ITS ---
DATE OF SERVICE: 07/01/2025 SURGEON: Travis Lucas MD INDICATIONS: Patient presents for evaluation of colorectal cancer screening and family history of colon cancer. Full consent was obtained from him for this, including risks of bleeding and perforation. PREOPERATIVE DIAGNOSIS: POSTOPERATIVE DIAGNOSIS: PROCEDURE PERFORMED: Colonoscopy to the cecum and terminal ileum. ESTIMATED BLOOD LOSS: COMPLICATIONS: ANESTHESIA: Monitored anesthesia care. ASSISTANTS: SPECIMENS: PREOPERATIVE DIAGNOSES: Colorectal cancer screening and family history of colon cancer. POSTOPERATIVE DIAGNOSES: Colorectal cancer screening and family history of colon cancer, occasional sigmoid diverticulosis, small internal hemorrhoids. DESCRIPTION OF PROCEDURE: The patient was placed in the left lateral decubitus position. The digital rectal exam revealed no abnormalities. The Olympus video pediatric colonoscope was entered into the rectum and advanced easily to the cecum. Once in the cecum, I did identify normal-appearing cecal pouch with appendiceal orifice and a normal-appearing ileocecal valve. The terminal ileum was cannulated and appeared normal. The scope was withdrawn back in the colon. The entire cecum and ileocecal valve appeared normal. The scope was slowly withdrawn assessing all mucosal surfaces carefully. Preparation was excellent. I did not visualize any sign of polyps, colitis, nor angiodysplasia. There were occasional diverticula in the sigmoid colon. In the rectum, scope was retroflexed visualizing internal hemorrhoids, but no other pathology. The rectal mucosa appeared normal. The scope was straightened and withdrawn from the patient. He tolerated the procedure well and was returned to recovery area in stable condition. IMPRESSION: 1. Occasional sigmoid diverticulosis. 2. Small internal hemorrhoids. PLAN: Given his family history, I would recommend a followup coloscopy in 5 years for further screening. He will otherwise see me on a p.r.n. basis. This has been discussed with his . MD ELOISE Burns/ILENEL / [id number]
== END 2025-07-01 15:23 | disposition home or self-care (01) ==
PROVIDERS: PCP Nurse Practitioner Family; Visit Provider Internal Medicine
PROC: 0DJD8ZZ Inspection of Lower Intestinal Tract, Via Natural or Artificial Opening Endoscopic (ICD-10-PCS; CPT 45378; principal; 2025-07-01 12:40)
DX: Z12.11 Encounter for screening for malignant neoplasm of colon (principal); Z80.0 Family history of malignant neoplasm of digestive organs; K57.30 Diverticulosis of large intestine without perforation or abscess without bleeding; K64.8 Other hemorrhoids; K21.9 Gastro-esophageal reflux disease without esophagitis; K76.0 Fatty (change of) liver, not elsewhere classified; E78.5 Hyperlipidemia, unspecified; H91.90 Unspecified hearing loss, unspecified ear; G47.30 Sleep apnea, unspecified; Z98.52 Vasectomy status; Z79.899 Other long term (current) drug therapy; Z88.1 Allergy status to other antibiotic agents; Z98.890 Other specified postprocedural states
CPT/HCPCS: 45378; J2003; J2704; J3010